=== PATIENT | male | born 1965 | race Caucasian/White ===

== ENCOUNTER 2017-08-31 20:53 | Emergency (ER) | payer OTHER ==
[2017-08-31 20:57] VITALS: BP 115/77
--- NOTE | 2017-08-31 21:08 | EDPHY ---
H & P Smoking Status: Never smoked Time Seen by Provider: 08/31/17 21:00 HPI/ROS: CHIEF COMPLAINT: Left 4th digit skin avulsion HISTORY OF PRESENT ILLNESS: 52-year-old [id number] male with up-to- date tetanus was removing a a tool and sustained superficial skin avulsion to his left 4th digit distal phalanx. Occurred shortly prior to arrival. No paresthesia distally. Slow bleeding. PHYSICAL EXAM (Prior to examination, patient consented to physical exam, hands were washed and my usual and customary physical exam procedures followed) 1) GENERAL: Well-developed, well-nourished, alert and oriented. Appears to be in no acute distress. 2) HEAD: Normocephalic 3) HEENT: sclera anicteric 4) LUNGS: Breathing comfortably. 5) SKIN: Left 4th digit distal phalanx superficial skin avulsion with slow capillary bleeding. 6) MUSCULOSKELETAL: FDP FDS intact. 7) NEUROLOGIC: Full sensation two-point discrimination intact (Luzma Anglin) Constitutional: Initial Vital Signs Temperature (C) 36.7 C 08/31/17 20:55 Heart Rate 58 L 08/31/17 20:55 Respiratory Rate 16 08/31/17 20:55 Blood Pressure 115/77 08/31/17 20:55 O2 Sat (%) 97 08/31/17 20:55 O2 Delivery Mode Room Air Allergies/Adverse Reactions: ampicillin Allergy (Verified 03/21/15 14:36) Rash MDM/Departure - MDM Procedures: Procedure: Digital nerve block Indications: Anesthesia prior to cleaning 1% lidocaine without epinephrine. Digital nerve block placed by myself in usual customary fashion achieving anesthesia distally. Wound is then cleansed in Surgicel dressing placed resulting in hemostasis. Patient tolerated procedure (Luzma Anglin Bobbi) ED Course/Re-evaluation: I did not see this patient while he was in the emergency department. However his care was discussed with the PA while the patient was in the department. I agree with treatment plan and management (Raymond Sorenson) - Depart Disposition: Home, Routine, Self-Care Clinical Impression: Avulsion of skin of finger Qualifiers: Encounter type: initial encounter Qualified Code(s): S61.209A - Unspecified open wound of unspecified finger without damage to nail, initial encounter Condition: Good Instructions: Skin Avulsion (ED) Additional Instructions: Return to the ER if you develop redness, swelling, discharge, warmth to the wound, red streaks going up your arm, or any other symptoms that concern you. Referrals: Emma Kiser MD [Primary Care Provider] - As per Instructions
== END 2017-08-31 21:39 | disposition home or self-care (01) ==
PROC: 3E0T3BZ Introduction of Anesthetic Agent into Peripheral Nerves and Plexi, Percutaneous Approach (ICD-10-PCS; principal; 2017-08-31)
DX: S61.205A Unspecified open wound of left ring finger without damage to nail, initial encounter (principal); W26.8XXA Contact with other sharp object(s), not elsewhere classified, initial encounter; Y99.8 Other external cause status; Y93.89 Activity, other specified